=== PATIENT | male | born 1995 | race Caucasian/White ===

== ENCOUNTER 2018-03-07 22:48 | Emergency (ER) | payer SELFPAY ==
[~2018-03-07] VITALS: Ht 167.6 cm; Wt 93.9 kg
[2018-03-07 22:56] VITALS: Ht 167.6 cm; Wt 93.9 kg
[2018-03-07 23:46] VITALS: BP 134/95
== END 2018-03-08 00:42 | disposition home or self-care (01) ==
LOC: ED 22:48
DX: S82.852A Displaced trimalleolar fracture of left lower leg, initial encounter for closed fracture (principal); W22.8XXA Striking against or struck by other objects, initial encounter; Y93.89 Activity, other specified; Y92.89 Other specified places as the place of occurrence of the external cause; Y99.8 Other external cause status
CPT/HCPCS: Q0092